=== PATIENT | male | born 1995 | race African-American/Black ===

== ENCOUNTER 2017-08-05 17:00 | Emergency (ER) | payer SELFPAY ==
--- NOTE | 2017-08-05 18:05 | RAD ---
FOUR VIEWS RIGHT KNEE: Date: 08-05-17 History: Right knee injury while playing football one day ago. Injury. Patient states right knee pain while walking. FINDINGS: There is no evidence of a fracture, dislocation, or other osseous abnormality involving the right kne e. IMPRESSION: No acute osseous abnormality. POS: [facility]
== END 2017-08-05 18:30 | disposition home or self-care (01) ==
LOC: ERS 17:00 → EEVIPCON 17:00 → ERS 18:30
DX: M25.561 Pain in right knee (principal)

== ENCOUNTER 2017-12-03 23:39 | Emergency (ER) | payer SELFPAY | END 2017-12-04 02:35 | disposition left against medical advice (07) | LOC: ERS 23:39 | DX: Z53.21 Procedure and treatment not carried out due to patient leaving prior to being seen by health care provider (principal) ==

== ENCOUNTER 2023-02-12 14:17 | Emergency (ER) | payer SELFPAY ==
[2023-02-12] MEDS ORDERED: Ondansetron ODT 4 MG TAB ONE (16:32)
[2023-02-12] MEDS ORDERED: Meclizine HCl 25 MG TAB ONE (17:05)
[2023-02-12 20:36] LABS: SARS-CoV-2 NAA Rapid Test DETECTED (NotDetected)
== END 2023-02-12 17:12 | disposition home or self-care (01) ==
LOC: ERS 14:17
DX: U07.1 COVID-19 (principal)
CPT/HCPCS: 99284; Q0162